=== PATIENT | male | born 1960 | race Caucasian/White ===

== ENCOUNTER 2017-12-26 21:11 | Inpatient (IN) | payer BC ==
[2017-12-26 22:16] LABS: ABS Basophils 0 10^3/ul (0-0.2); ABS Eosinophils 0 10^3/ul (0-0.6); ABS Monocytes 0.6 10^3/ul (0-0.8); ABS Neutrophils 7.8 10^3/ul (1.5-7.7); ABS Nucleated RBC 0 10^3/ul; Eosinophil % 0.3 % (0-6); Hematocrit 41 % (42-52); Hemoglobin 13.6 g/dl (14.0-18.0); Lymphocyte % 10.6 % (25-47); Mean Corpuscular HGB Conc 34 g/dl (31-36); Mean Corpuscular Hemoglobin 30 pg (27-31); Mean Corpuscular Volume 90 fL (80-94); Mean Platelet Volume 8.7 um3 (7.4-10.4); Nucleated Red Blood Cells % 0.1; Platelet Count 280 10^3/ul (150-450); Red Blood Count 4.49 10^6/ul (4.0-5.4); Red Cell Distribution Width 14 % (10.5-15); White Blood Count 9.5 10^3/ul (3.5-10.8)
[2017-12-26 22:31] LABS: EGFR Non-African American 83.5 (>60)
[2017-12-27 01:12] LABS: Urine Appearance Turbid; Urine Blood Negative (Negative); Urine Ketones Negative (Negative); Urine Protein Negative (Negative); Urine Specific Gravity 1.024 (1.010-1.030); Urine Urobilinogen Negative (Negative)
[2017-12-27 01:25] LABS: Urine Color Amber
--- NOTE | 2017-12-27 06:37 | ED ---
Sayra Banuelos Rebecca, scribed for Nusrat Christensen MD on 12/26/17 at 2133 . Psychiatric Complaint - HPI Summary HPI Summary: Pt is a 57 y/o M who presents to ED accompanied by his sister c/o worsening anxiety and depression. Notes intermittent SIs. Reports that upon waking up every day he is concerned about how he will get through the day with no specific concerns, just general worries. 10 years ago, which he believes were triggered by the winter season. States he typically improves over the summer. Prior similar episodes PMHx anxiety and depression. He was started on Lexapro BID yesterday morning after being on Pristiqu for many years, then Zoloft which he is still taking. - History Of Current Complaint Chief Complaint: EDMentalHealth Time Seen by Provider: 12/26/17 21:28 Hx Obtained From: Patient Onset/Duration: Still Present Character: Depressed, Anxious Aggravating Factor(s): Other - Winter Alleviating Factor(s): Other - Summer Related History: Positive For: Prior Psychiatric Issues - Anxiety, depression Has Suicidal: Reports: Thoughts - Allergies/Home Medications Allergies/Adverse Reactions: Allergies Allergy/AdvReac Type Severity Reaction Status Date / Time No Known Allergies Allergy Verified 12/26/17 21:47 Home Medications: Home Medications Escitalopram Oxalate [Lexapro 10 mg] 10 mg PO DAILY 12/26/17 [History Confirmed 12/26/17] Sertraline HCl [Zoloft] 50 mg PO DAILY 12/26/17 [History Confirmed 12/26/17] PMH/Surg Hx/FS Hx/Imm Hx Endocrine/Hematology History: Reports: Hx Anemia - Is taking iron supplements Psychiatric History: Reports: Hx Anxiety, Hx Depression Infectious Disease History: No Infectious Disease History: Denies: Traveled Outside the US in Last 30 Days - Family History Known Family History: Positive: Other - [place] - Social History Alcohol Use: Occasionally Substance Use Type: Reports: None Smoking Status (MU): Never Smoked Tobacco Review of Systems Negative: Fever Positive: Anxious, Depressed, Other - SIs All Other Systems Reviewed And Are Negative: Yes Physical Exam - Summary Physical Exam Summary: VITAL SIGNS: Reviewed. GENERAL: ~Patient is a well-developed and nourished male who is lying comfortable in the stretcher. Patient is not in any acute respiratory distress. Patient is cooperative, seems depressed and has concerns. HEAD AND FACE: No signs of trauma. No ecchymosis, hematomas or skull depressions. No sinus tenderness. EYES: PERRLA, EOMI x 2, No injected conjunctiva, no nystagmus. EARS: Hearing grossly intact. Ear canals and tympanic membranes are within normal limits. MOUTH: Oropharynx within normal limits. NECK: Supple, trachea is midline, no adenopathy, no JVD, no carotid bruit, no c- spine tenderness, neck with full ROM. CHEST: Symmetric, no tenderness at palpation LUNGS: Clear to auscultation bilaterally. No wheezing or crackles. CVS: Regular rate and rhythm, S1 and S2 present, no murmurs or gallops appreciated. EXTREMITIES: FROM in all major joints, no edema, no cyanosis or clubbing. NEURO: Alert and oriented x 3. No acute neurological deficits. Speech is normal and follows commands. SKIN: Dry and warm Triage Information Reviewed: Yes Vital Signs On Initial Exam: Initial Vitals Temp Pulse Resp BP Pulse Ox 98.8 F 83 16 133/72 100 12/26/17 21:15 12/26/17 21:15 12/26/17 21:15 12/26/17 21:15 12/26/17 21:15 Vital Signs Reviewed: Yes Diagnostics - Vital Signs Vital Signs Temp Pulse Resp BP Pulse Ox 12/26/17 21:15 98.8 F 83 16 133/72 100 - Laboratory Result Diagrams: 12/26/17 22:02 12/26/17 22:02 Lab Statement: Any lab studies that have been ordered have been reviewed, and results considered in the medical decision making process. Course/Dx - Course Assessment/Plan: Pt is a 57 y/o M who presents to ED accompanied by his sister c /o worsening anxiety and depression. Notes intermittent SIs. Reports that upon waking up every day he is concerned about how he will get through the day with no specific concerns, just general worries. 10 years ago, which he believes were triggered by the winter season. States he typically improves over the summer. Prior similar episodes PMHx anxiety and depression. He was started on Lexapro BID yesterday morning after being on Pristiqu for many years, then Zoloft which he is still taking. Medically cleared for MHE at 0004. Pt will be signed out to Dr. Schulz, pending disposition, awaiting MHE completion. - Differential Dx/Clinical Impression Provider Diagnosis: Depression Discharge - Sign-Out/Discharge Documenting (check all that apply): Sign-Out Patient Signing out patient TO: Justine Schulz - Pending MHE Completion - Discharge Plan Condition: Stable Referrals: No Primary Care Phys,NOPCP [Primary Care Provider] - The documentation as recorded by the Sayra topete Rebecca accurately reflects the service I personally performed and the decisions made by , Nusrat Christensen MD.
[2017-12-27] MEDS ORDERED: Escitalopram (NF) 10 MG TAB PO ONE ×2 (08:30→08:48)
[2017-12-27] MEDS ORDERED: Sertraline* 50 MG TAB PO ONE (08:47)
--- NOTE | 2017-12-27 13:54 | ED ---
Tequila Banuelos Julia, scribed for Justine Schulz MD on 12/27/17 at 0741 . Progress - Progress Note Progress Note: This pt is signed out from Dr. Christensen at shift change. At 08:25 Patient's disposition was discussed with staff in Flex Unit. Pt with depression, has come from [place] to be with his sister, has not been able to manage daily living. Flex staff informed me that patient will be admitted, but no inpatient beds are available at the moment. Flex staff are persuing possible transfer. Pt will be an involuntary admit. Staff informed me of patient's regular medications to be ordered including Zoloft and Lexapro both last taken 12/26/17. PE: Pt alert, calm, cooperative, poor eye contact. HEENT: PERRL EOMI, atraumatic Neck: supple, nontender, no JVD Cor S1 S2 Lungs Clear Abd soft, nontender, no masses Extrem: no edema, no calf tenderness, pulses intact. Neuro: A O x 3, Motor 5/5 Sensation intact, reflexes intact, no focal deficit. Skin: warm, dry, well perfused. - Consult/PCP Time Called: 00:10 Course/Dx - Course Course Of Treatment: Pt was medically cleared by Dr. Christensen. Per Dr. Herring admit . 13:43 9. papers completed. Condition stable. Dx: depression - Diagnoses Provider Diagnoses: Depression Discharge - Sign-Out/Discharge Documenting (check all that apply): Discharge - admit U - Discharge Plan Condition: Stable Disposition: [facility]YCHIATRIC FACILITY-[facility] Discharge Disposition Comment: Pt admitted to [facility] involuntary status - Billing Disposition and Condition Condition: STABLE Disposition: PS-[facility] The documentation as recorded by the Tequila topete Julia accurately reflects the service I personally performed and the decisions made by , Justine Schulz MD.
[2017-12-28] MEDS: Sertraline* 100 MG TAB PO SCH (16:07)
--- NOTE | 2017-12-28 19:25 | HP ---
PSYCHIATRIC HISTORY AND PHYSICAL: DATE OF ADMISSION: 12/27/17 JUSTIFICATION FOR ADMISSION: The patient is in need of 24-hour supervision and care secondary to sol cidal ideations without plan. CHIEF COMPLAINT: "Just depressed I guess." HISTORY OF PRESENT ILLNESS: The patient is a 57-year-old, single, never white male with a hi story of major depressive disorder, who was brought in by his sister on a 9.39 legal status due to in creasing symptoms of depression as well as inability to care for himself. My understanding is that kaylen ramirez came to the [facility] to stay with his sister because he has been too depressed to get out of bed or go to work. He made passive suicidal statements to the effect that he wanted to go to sleep and not wake up, which prompted her to call an ambulance to have him brought to the hospital for evaluati on. His sister is not available at this time for further collateral information. 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 Apparently, he started getting depressed this wi nter and was actually hospitalized in early September of this year at [facility] in [place], [place]. Thereafter, he took medical leave from work and for about 1-1/2 months he traveled [facility] his older sister in [place]. During that time, his mother in [place], [place], sometime in 2017 and he has been experiencing significant grief from that. He used to get much of his socia lization from visiting his mother and is still grieving her loss. More recently, he visited here to where his younger sister lives and stayed with her for 1 night. He has been experiencing anxiety, pa martina attacks, no confidence, depressed mood. He feels lonely and feels that he has lacked companionsh ip throughout his life and he has been isolating at home with poor motivation and had been missing wo rk. Currently, he states that the winter has been particularly dreary even prior to the of his mother. He does acknowledge passive suicidal ideations with the thought that it would be okay if he did not wake up in the morning. He steadfastly denies any plan to harm himself. The patient has be en hypersomnolent with anhedonia, increased guilt, poor energy, poor concentration, lack of appetite, psychomotor retardation, and passive suicidal thoughts of . PSYCHIATRIC HISTORY: He has been hospitalized at [facility] in [place] twice; the first time 10 yea rs ago and the second time in September 2017. He had been on an antidepressant called Pristiq for appr oximately 10 years. Two months ago, he saw a psychiatrist in [place] who switched him for Pristiq t o Zoloft. Then, approximately 1 week ago because the patient was experiencing sexual side effects fr om Zoloft, this was decreased from 100 mg to 50 and the patient was started on 10 mg of Lexapro. The patient denies any previous history of suicidality including attempts or plans. He denies any histo ry of violence. He has never received electroconvulsive therapy. He denies any past history of abus e or neglect and denies traumatic brain injury. SUBSTANCE ABUSE HISTORY: Negative for alcohol, tobacco, or illicit drug abuse. PAST MEDICAL HISTORY: Significant for spinal stenosis with spinal surgery occurring 5 years ago. CURRENT MEDICATIONS: Include: 1. Lexapro 10 mg p.o. daily. 2. Zoloft 50 mg p.o. daily. ALLERGIES: He denies having any known drug allergies. FAMILY HISTORY: Significant for both of his sisters with depression and his fraternal brother with d epression. All three of them take some form of antidepressant medication. SOCIAL HISTORY: The patient was born and raised in [place], [place]. His parents in 1985 aft er 32 years of marriage, whereas his father remarried, his mother stayed single until her . The patient does have 1 fraternal brother, he has a younger sister and then an older sister, all from [facility] same mother and father. The patient never , never had children. He was able to finish high school and then went into the [employer]. 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 He is currently on medical leave. He owns his own house in [place], [place], since approximately 1997 where he lives alone. He has no prior history. No leg al history. He is not currently sexually active and has no sexually transmitted disease history. [facility] patient is anabaptist and [facility] [employer]. REVIEW OF SYSTEMS: The patient denies headache or double vision. He denies sore throat, cough, ches t pain, difficulty breathing. He denies abdominal pain, nausea, vomiting, diarrhea, or constipation. He denies difficulty ambulating, enlarged lymph nodes, fevers, or rashes. PHYSICAL EXAMINATION VITAL SIGNS: Blood pressure 114/82, heart rate 72, temperature 98.3 degrees Fahrenheit, oxygen satur ations are 100% on room air, respiratory rate is 18. HEENT: Head is normocephalic, atraumatic. NECK: Supple. CHEST: Clear to auscultation bilaterally. CARDIAC: Exam reveals normal heart sounds. ABDOMEN: Soft and nontender. MUSCULOSKELETAL: Exam reveals no sign of edema. NEUROLOGIC: He is grossly intact with no focal deficits. SKIN: Warm and dry. MENTAL STATUS EXAM: The patient is small, slight of stature, aging white male, who is calm, coopera tive. He is dressed in a long-sleeved T-shirt and jeans. He speaks with a raspy voice. Mood appear s to be depressed with constricted affect. Thought process is somewhat slowed. Thought content is si gnificant for his desire to get into a residential or to live in a more social setting. He is current ly denying suicidal or homicidal ideations. He denies auditory or visual hallucinations. Insight an d judgment appear to be fair given his willingness to seek treatment. Cognitively, he is awake and a lert with what would appear to be an average intellect. LABORATORY DATA: Revealed slight anemia with hemoglobin of 13.6 and hematocrit of 41. Complete meta bolic panel will be of slightly elevated glucose of 106. TSH is normal at 0.82. Urinalysis within n ormal limits. Urine drug screen is negative for all substances tested. DIAGNOSES: As follows: [place] I: Major depressive disorder, recurrent, severe without psychotic features. [place] II: Deferre d. [place] III: History of spinal stenosis, history of spinal surgery, normocytic anemia. [place] IV: Mod erate primary support stressors. [place] V: At this time is 40. IMPRESSION: The patient is a 57-year-old, single, never white male with a history of recurre nt major depressive illness, who was brought in on a 9.39 status when his sister whom he is visiting here in [place] called the ambulance because he was lethargic, amotivated, and could not seem to get o ut of bed. He also made passive suicidal statements, which he repeated in our emergency room. PLAN: The patient is admitted to the adult behavioral health unit where he was placed on q.15-minute checks for his own safety. We will resume treatment with sertraline and bump it back up to 100 mg. We will also start an adjunctive trial of Wellbutrin XL 150 mg p.o. daily. I will discontinue Lexap ro as there is no rationale for him to be on 2 serotonin reuptake inhibitors. The patient is strongl y encouraged to avail himself of all group and milieu activities. He will have a chance to meet with a social science teacher about his housing situation on Saturday. We will be involving his sister in his treatm ent. Once dischargeable, we will have to find psychiatric followup in whichever community he desires to reside in. [id number]/CPS #: [id number]
[2017-12-29] MEDS: BuPROPion XL* 150 MG TAB.XL PO SCH (10:09)
[2017-12-29] MEDS: Sertraline* 100 MG TAB PO SCH (10:09)
[2017-12-29] MEDS: CMC:Lactase Enzyme (NF) 3,000 UNIT TAB PO SCH (17:13)
[2017-12-30] MEDS: CMC:Lactase Enzyme (NF) 3,000 UNIT TAB PO SCH ×3 (08:03→17:03)
[2017-12-30] MEDS: BuPROPion XL* 150 MG TAB.XL PO SCH (09:35)
[2017-12-30] MEDS: Sertraline* 100 MG TAB PO SCH (09:36)
--- NOTE | 2017-12-30 10:08 | PN ---
Subjective - Subjective Subjective: Psychiatric ATtending Progress NOte: chart reveiwed including Dr. Javed's history and physical patient history gathered in full and patient interviewed X 45 min In summary patient is 57 yo male with history of mild intellectual disorder and recurrent major depression admitted 5 days ago with symptoms of depression ongoing since September 2017. patient hospitalized 10 years ago and placed on pristiq 50 mg with good response and remission of symptoms until late 2016. rehospitalized in september 2017 with recurrent depression and passive SI. Pristiq was increased to 100 mg with poor response. Patient unable to get of bed or make his meals. He took leave from work and went to visit sister in [place]. He saw new psychiatrist who discontinued pristiq and started him on Zoloft up to 100 mg which caused decrease libido. lowered to 50 mg and lexapro added. poor response. remained depressed. returned to [place], returned to work for 3 weeks but had to take off again as he was not able to get himself to work. Patient lives alone, is single, no children. 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 Patient was close with and devoted to mother who shortly before he returned from [place]. Patient continues to think of mother daily and is mouring her . Medical History : none NKDA psych history as above MSE: 57 yo male with short stature. patient is oddly related and has poor eye contact. patient is moderately restless. He walked away from me initially telling me that he was feeling very anxious. He appeared moderately agitated and I ordered him klonopin 0.5 mg stat. mood depressed affect anxious and labile. thought process: mildly disorganized and at times irrelevant. patient has poor attention span and concentration which is causing him to be unable to process language accurately ie. receptive language diminished. Thought content: appears somewhat internally preoccupied. at first answered yes when asked if he was hearing voices and then answered no. patient is preoccupied with thoughts of mother. also has passive thoughts of suicide, feels hopeless, and worthless. also reports anhedonia, diminished interest, low energy, decreased appetite, difficulty falling and staying asleep. insight fair Judgment intact. cognitively: alert and oriented in all spheres. patient has impaired attention span, concentration. concrete, and appears to have limited intellectual capacity. Labs reviewed and are all within normal limits. Impression: MDD severe ? psychotic features Bereavement Intellectual Disorder mild Plan: d/c zoloft as patient is against it due to sexual side effects start Remeron 15 mg qhs continue wellbutrin XL 150 mg x 1 more day then increase to 300 mg qam start klonopin 0.5 mg BID for anxiety/agitation give trazodone 50 mg qhs prn insomnia increase database by talking with sisters attends therapy program. would like to speak with his providers there as well Plan - Plan Treatment Plan: Name: TAISHA BENITEZ Birthdate: 1960 [id number] Medications: Current Medications Bupropion HCl (Wellbutrin Xl *) 150 mg PO DAILY JYOTHI PRN Reason: Protocol Last Admin: 12/30/17 09:35 Dose: 150 mg Clonazepam (Klonopin Tab(*)) 0.5 mg PO BID@09,16 JYOTHI Lactase (Lactaid Fast Act (Nf)) 3,000 unit PO AC JYOTHI Last Admin: 12/30/17 17:03 Dose: 3,000 unit Mirtazapine (Remeron Tab*) 15 mg PO BEDTIME JYOTHI Trazodone HCl (Desyrel Tab*) 50 mg PO BEDTIME PRN PRN Reason: INSOMNIA
--- NOTE | 2017-12-30 11:31 | PN ---
MHU: Group Therapy Note - Service Type Service Type: 27679 Group Psychotherapy - Cognitive Behavioral Group Therapy ( CBT):Patient attended CBT programming this morning and presented with flat affect that did not vary with discussion. Although responsive to direct prompts to respond to questions, patient did not engage in spontaneous conversation
[2017-12-30] MEDS ORDERED: clonazePAM TAB(*) 0.5 MG ONE (17:01)
[2017-12-30] MEDS ORDERED: clonazePAM TAB(*) 0.5 MG PO ONE (17:03)
[2017-12-30] MEDS ORDERED: traZODone TAB* 50 MG TAB PO PRN (18:38)
[2017-12-30] MEDS: Mirtazapine TAB* 15 MG PO SCH (21:29)
[2017-12-31] MEDS: CMC:Lactase Enzyme (NF) 3,000 UNIT TAB PO SCH ×3 (08:49→16:49)
[2017-12-31] MEDS: BuPROPion XL* 150 MG TAB.XL PO SCH (08:49)
[2017-12-31] MEDS: clonazePAM TAB(*) 0.5 MG PO SCH ×2 (08:50→16:49)
--- NOTE | 2017-12-31 12:54 | PN ---
Subjective - Subjective Date of Service: 12/31/17 Service Type: 13040 Hosp care 25 min moderate complexity Subjective: Taisha is seen today in coverage for attending psychiatrist, Dr. Walton. I meet with the patient during visiting hours in the day area, where he is accompanied by his sister, Josie. She immediately comments that he looks better to her than he had been prior to admission. Taisha concurs, stating "I 've got more energy. Now that the weather's better I'd really like to think about getting out there and doing stuff." His sister confirms that he has a "green thumb" and typically does a great deal of gardening this time of year. Taisha is tolerating his medication changes well and has no complaints of untoward effects. Staff notes indicate that he is somewhat overinvested in the idea of getting more exercise and tends to perseverate on this. An additional concern is his admission of hearing voices on the unit. "Only once in a blue martinez. It's nothing really" he states when asked about this problem. Josie requests a more formal family meeting prior to discharge and is referred to Dr. Walton and KEO Chang for this question. Taisha denies SI. Objective - Appearance Appearance: Well Developed/Nourished Dysmorphic Features: No Hygiene: Normal Grooming: Well Kept - Behavior Psychomotor Activities: Normal Exhibits Abnormal Movement: No - Attitude and Relatedness Attitude and Relatedness: Cooperative Eye Contact: Good - Speech Quality: Unpressured Latencies: Normal Quantity: Appropriate - Mood Patient's Decription of Mood: "Good" - Affect Observed Affect: Good Affect Consistent with: Euthymia - Thought Process Patient's Thought Process: Coherent Thought Content: No Passive Wish, No Suicidal Planning, No Homicidal Ideation, No Paranoid Ideation - Sensorium Experiencing Hallucinations: No, Sensorium is Clear Type of Hallucinations: Visual: No, Auditory: No, Command: No - Level of Consciousness Level of Consciousness: Alert Orientation: Yes Intact, Yes Orientated to Time, Yes Orientated to Place, Yes Orientated to Person - Impulse Control Impulse Control: Intact - Insight and Judgement Insight and Judgement: Good - Group Participation Particating in Group Activities: Yes - Medication Management Medication Management Adherence: Yes Assessment - Assessment Merits Inpatient Hospitalization: Consolidate Improvements, Pending Safe DC Plan Inpatient DSM-V Dx: F33.2 Clinical Impression: 57 y.o. single, never , white male with a history of recurrent unipolar depression, questionable intellectual delay and recent psychiatric hospitalization in [place], [place] who arrives on 9.41 status via an ambulance after divulging passive SI to his sister here in [place], whom he is temporarily visiting here in [place]. Plan - Plan Treatment Plan: Name: TAISHA BENITEZ Birthdate: 1960 [id number] The patient's sertraline is discontinued due to sexual side effects. We have similarly discontinued escitalopram. He is currently on a regimen of mirtazapine 15mg PO qhs, bupropion XL 150mg PO qam and clonazepam 0.5mg PO BID. The patient is improving but needs further inpatient-level stabilization for safety. Family is requesting a meeting with the team. Continued Medication Management: Different Medication Medications: Current Medications Bupropion HCl (Wellbutrin Xl *) 150 mg PO DAILY JYOTHI PRN Reason: Protocol Last Admin: 12/31/17 08:49 Dose: 150 mg Clonazepam (Klonopin Tab(*)) 0.5 mg PO BID@,16 [facility] Last Admin: 12/31/17 08:50 Dose: 0.5 mg Lactase (Lactaid Fast Act (Nf)) 3,000 unit PO AC [facility] Last Admin: 12/31/17 12:03 Dose: 3,000 unit Mirtazapine (Remeron Tab*) 15 mg PO BEDTIME [facility] Last Admin: 12/30/17 21:29 Dose: 15 mg Trazodone HCl (Desyrel Tab*) 50 mg PO BEDTIME PRN PRN Reason: INSOMNIA - Discharge Plan Discharge Plan: Inpatient Hospitalization
[2017-12-31] MEDS: Mirtazapine TAB* 15 MG PO SCH (21:21)
[2018-01-01] MEDS: CMC:Lactase Enzyme (NF) 3,000 UNIT TAB PO SCH ×4 (08:13→16:46)
[2018-01-01] MEDS: BuPROPion XL* 150 MG TAB.XL PO SCH (08:13)
[2018-01-01] MEDS: clonazePAM TAB(*) 0.5 MG PO SCH ×2 (08:14→16:46)
--- NOTE | 2018-01-01 10:07 | PN ---
Subjective - Subjective Subjective: Psychiatric Attending Progress Note: Met with patient X 25 minutes this afternoon. He reports that he has been feeling better when compared to how he felt upon admission 6 days ago. Patient endorses feeling considerable less anxiety, less restlessness and also feels mood is brighter. He has been sleeping 8 hours per night over past 3 to 4 days. Patient's sister came to visit him yesterday and the visit went well. Review of nursing and oral surgery technician's notes reveal patient has been attending groups and has been increasingly less seclusive since admission. he has a good appetite and has been eating majority if not all of his meal (which was not true prior to admission) Vitals remain stable Objective - Appearance Appearance: Healthy Appearing Dysmorphic Features: No Hygiene: Normal Grooming: Well Kept - Behavior Psychomotor Activities: Normal Exhibits Abnormal Movement: No - Attitude and Relatedness Attitude and Relatedness: Cooperative Eye Contact: Good - Speech Quality: Unpressured Latencies: Normal Quantity: Terse - Mood Patient's Decription of Mood: "Okay" - Affect Observed Affect: Constricted Affect Consistent with: Dysphoria - Thought Process Patient's Thought Process: Coherent, Impoverished Thought Content: No Passive Wish, No Suicidal Planning, No Homicidal Ideation, No Paranoid Ideation - Sensorium Experiencing Hallucinations: No, Sensorium is Clear Type of Hallucinations: Visual: No, Auditory: No, Command: No - Level of Consciousness Level of Consciousness: Alert Orientation: Yes Intact, Yes Orientated to Time, Yes Orientated to Place, Yes Orientated to Person - Impulse Control Impulse Control: Intact - Insight and Judgement Insight and Judgement: Fair - Group Participation Particating in Group Activities: Yes - Medication Management Medication Management Adherence: Yes Assessment - Assessment Inpatient DSM-V Dx: F33.2 Clinical Impression: patient is showing gains in his mental status with decreased agitation, brighter mood,improved quality and duration of sleep. He continues to be oddly related and have impoverished content of thought which are likely related to intellectual disorder. Plan - Plan Medications: Increase Remeron to 30 mg po QHS continue Wellbutrin XL 150 mg QAM continue Trazodone 50 mg gqhs Continue Klonopin 0.5 mg BID will call sister to arrange for family meeting for tomorrow potential discharge for saturday assuming patient maintains current gains.
[2018-01-01] MEDS: Mirtazapine TAB* 15 MG PO SCH (21:17)
[2018-01-02] MEDS: CMC:Lactase Enzyme (NF) 3,000 UNIT TAB PO SCH ×3 (08:50→16:41)
[2018-01-02] MEDS: clonazePAM TAB(*) 0.5 MG PO SCH ×2 (08:50→16:41)
[2018-01-02] MEDS: BuPROPion XL* 150 MG TAB.XL PO SCH (08:50)
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
[2018-01-02] MEDS: Mirtazapine TAB* 15 MG PO SCH (20:47)
[2018-01-03] MEDS: CMC:Lactase Enzyme (NF) 3,000 UNIT TAB PO SCH ×3 (09:49→16:59)
[2018-01-03] MEDS: BuPROPion XL* 150 MG TAB.XL PO SCH (09:49)
[2018-01-03] MEDS: clonazePAM TAB(*) 0.5 MG PO SCH ×2 (09:50→16:59)
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
[2018-01-03] MEDS: Mirtazapine TAB* 15 MG PO SCH (21:48)
[2018-01-04] MEDS: CMC:Lactase Enzyme (NF) 3,000 UNIT TAB PO SCH ×3 (07:49→17:03)
[2018-01-04] MEDS: clonazePAM TAB(*) 0.5 MG PO SCH ×2 (09:00→17:03)
[2018-01-04] MEDS: BuPROPion XL* 150 MG TAB.XL PO SCH (09:00)
[2018-01-04] MEDS: Mirtazapine TAB* 15 MG PO SCH (20:36)
[2018-01-05] MEDS: BuPROPion XL* 150 MG TAB.XL PO SCH (09:16)
[2018-01-05] MEDS: clonazePAM TAB(*) 0.5 MG PO SCH ×2 (09:16→16:59)
[2018-01-05] MEDS: CMC:Lactase Enzyme (NF) 3,000 UNIT TAB PO SCH ×3 (09:16→16:59)
[2018-01-05] MEDS: Mirtazapine TAB* 15 MG PO SCH (22:00)
[2018-01-06] MEDS: CMC:Lactase Enzyme (NF) 3,000 UNIT TAB PO SCH ×4 (08:02→19:59)
[2018-01-06] MEDS: BuPROPion XL* 150 MG TAB.XL PO SCH (08:02)
[2018-01-06] MEDS: clonazePAM TAB(*) 0.5 MG PO SCH ×2 (08:52→16:38)
--- NOTE | 2018-01-06 10:15 | PN ---
Subjective - Subjective Subjective: Psychiatric Attending Progress Note: Patient did well over weekend but did appear to be sleeping more than usual during the day. somwhat oversedated per patient. denied any other side effects. I spoke with Patient's brother Abhishek again today. Abhishek spoke with Chilango both Saturday and Saturday and reported to me that he seemed much more alert and much closer to his baseline. we discussed chilango attending group therapy 2 to 3 times a week at [facility], and also him seeing therapist and psychiatrist Melvina Chang will be setting up the above appointments. I met with Chilango and other than being a tad sleepy likely from the klonopin Objective - Appearance Appearance: Well Developed/Nourished Dysmorphic Features: No Hygiene: Normal Grooming: Fairly Well Kept - Behavior Psychomotor Activities: Normal Exhibits Abnormal Movement: No - Attitude and Relatedness Attitude and Relatedness: Cooperative Eye Contact: Fair - Speech Quality: Unpressured Latencies: Normal Quantity: Appropriate - Mood Patient's Decription of Mood: "Anxious" - Affect Observed Affect: Unvariable Affect Consistent with: Euthymia - Thought Process Patient's Thought Process: Coherent Thought Content: No Passive Wish, No Suicidal Planning, No Homicidal Ideation, No Paranoid Ideation - Sensorium Type of Hallucinations: Visual: No, Auditory: No, Command: No - Level of Consciousness Level of Consciousness: Alert Orientation: Yes Intact, Yes Orientated to Time, Yes Orientated to Place, Yes Orientated to Person - Impulse Control Impulse Control: Intact - Insight and Judgement Insight and Judgement: Fair - Group Participation Particating in Group Activities: Yes - Medication Management Medication Management Adherence: Yes Assessment - Assessment Inpatient DSM-V Dx: F33.2 Clinical Impression: recurrent major depression in partial remission patient no longer suicidal. His mental status has improved sufficiently. He is stable and ready for discharge. Plan - Plan Treatment Plan: Plan: d/c scheduled klonopin as it is causing oversedation change to 0.25 mg BID prn anxiety or agitation discharge 4 pm tomorrow with follow up psychiatric apppointment, [facility] groups and individual therapy return to work in one week
[2018-01-06] MEDS ORDERED: clonazePAM TAB(*) 0.5 MG PO PRN (16:03)
[2018-01-06] MEDS: Mirtazapine TAB* 15 MG PO SCH (23:05)
[2018-01-07] MEDS: BuPROPion XL* 150 MG TAB.XL PO SCH (10:07)
[2018-01-07] MEDS: CMC:Lactase Enzyme (NF) 3,000 UNIT TAB PO SCH ×3 (10:07→16:55)
[2018-01-07 10:11] VITALS: BP 95/69
--- NOTE | 2018-01-07 12:49 | DS ---
Treatment Course & Assessment Clinical Course & Impression: recurrent major depression in partial remission patient no longer suicidal. His mental status has improved sufficiently. He is stable and ready for discharge. Inpatient DSM-V Dx: F33.2 Discharge Planning - Discharge Planning Medications: Current Medications Bupropion HCl (Wellbutrin Xl *) 150 mg PO DAILY [facility] PRN Reason: Protocol Last Admin: 01/07/18 10:07 Dose: 150 mg Clonazepam (Klonopin Tab(*)) 0.25 mg PO BID PRN PRN Reason: anxiety/agitation Last Admin: 01/06/18 19:59 Dose: 0.25 mg Lactase (Lactaid Fast Act (Nf)) 3,000 unit PO AC [facility] Last Admin: 01/07/18 12:05 Dose: 3,000 unit Mirtazapine (Remeron Tab*) 30 mg PO BEDTIME [facility] Last Admin: 01/06/18 23:05 Dose: 30 mg Trazodone HCl (Desyrel Tab*) 50 mg PO BEDTIME PRN PRN Reason: INSOMNIA Discharge Planning: Prescriptions provided for discharge [] Yes [] No Follow up care details as per social work arrangements. Patient response to discharge plan: [] eager for discharge [] agreeable with discharge plan [] ambivalent about discharge [] disagrees with discharge today
[2018-01-07] MEDS ORDERED: clonazePAM TAB(*) 0.5 MG PO ONE (16:40)
== END 2018-01-07 17:35 | disposition home or self-care (01) | DRG 751 ==
LOC: ED 21:11 → BSU 12-27 14:37
PROVIDERS: ADMIT Psychiatry & Neurology Psychiatry; ATTEND Psychiatry & Neurology Psychiatry
DX: F33.2 Major depressive disorder, recurrent severe without psychotic features (principal); R45.851 Suicidal ideations; F70 Mild intellectual disabilities; Z79.899 Other long term (current) drug therapy; Z81.8 Family history of other mental and behavioral disorders
CPT/HCPCS: 36415; 80053; 80307; 80320; 80329; 81003; 82607; 82746; 84436; 84439; 84443; 85025; 90853; 99222; 99231; 99232; 99238; 99282; A9270-GY; G0480

== ENCOUNTER 2021-08-17 12:27 | Inpatient (IN) ==
[2021-08-17 14:01] LABS: Urine Appearance Clear; Urine Bilirubin Negative (Negative); Urine Blood Negative (Negative); Urine Color Yellow; Urine Glucose Negative (Negative); Urine Ketones Negative (Negative); Urine Nitrite Negative (Negative); Urine Protein Negative (Negative); Urine Specific Gravity 1.026 (1.002-1.030); Urine Urobilinogen Negative (Negative)
[2021-08-17 14:17] LABS: Urine Benzodiazepine Screen None Detected (None Detect); Urine Cannabinoids Screen None Detected (None Detect); Urine Opiates Screen None Detected (None Detect)
[2021-08-17 15:58] LABS: ABS Lymphocytes 0.7 10^3/ul (1.0-4.8); ABS Monocytes 0.5 10^3/ul (0-0.8); ABS Neutrophils 6.5 10^3/ul (1.5-7.7); Eosinophil % 0.2 %; Hematocrit 39 % (42-52); Mean Corpuscular HGB Conc 33 g/dL (31-36); Mean Corpuscular Hemoglobin 30 pg (27-31); Mean Corpuscular Volume 90 fL (80-94); Mean Platelet Volume 9.6 fL (7.4-10.4); Platelet Count 230 10^3/uL (150-450); Red Blood Count 4.35 10^6 /uL (4.18-5.48); Red Cell Distribution Width 14 % (10-15); White Blood Count 7.7 10^3/uL (3.5-10.8)
[2021-08-17 16:17] LABS: ALT 16 U/L (7-52); AST 15 U/L (13-39); Albumin 4.6 g/dL (3.2-5.2); Albumin/Globulin Ratio 1.9 (1-3); Alkaline Phosphatase 74 U/L (35-149); Anion Gap 4 mmol/L (2-11); Blood Urea Nitrogen 32 mg/dL (6-24); CO2 Carbon Dioxide 31 mmol/L (22-32); Calcium 9.8 mg/dL (8.6-10.3); Chloride 104 mmol/L (101-111); Globulin 2.4 g/dL (2-4); Glucose 120 mg/dL (70-100); Potassium 4.7 mmol/L (3.5-5.0); Sodium 139 mmol/L (135-145); eGFR CKD-EPI 97.9 (>60)
[2021-08-17 17:02] LABS: Acetaminophen < 15 mcg/mL; Alcohol, S < 13 mg/dL (<13); Salicylate < 2.50 mg/dL (<30)
[2021-08-17 17:14] LABS: TSH Ultra Thyroid Stim Horm 0.41 mcIU/mL (0.34-5.60)
[2021-08-17 18:36] LABS: Rapid COVID-19 Molecular Undetected (Undetected)
[2021-08-17] MEDS ORDERED: Al Hydrox/Mg Hydrox/Simet LIQ 30 ML UDC PO PRN (20:27)
[2021-08-18 07:35] LABS: HDL Cholesterol 67.6 mg/dL
[2021-08-18] MEDS: Vitamin THERAPEUTIC TAB PO SCH (10:38)
[2021-08-19] MEDS: Vitamin THERAPEUTIC TAB PO SCH (08:18)
[2021-08-20] MEDS: Vitamin THERAPEUTIC TAB PO SCH (09:22)
[2021-08-21] MEDS: Vitamin THERAPEUTIC TAB PO SCH (08:40)
[2021-08-22] MEDS: Vitamin THERAPEUTIC TAB PO SCH (08:48)
[2021-08-23] MEDS: Vitamin THERAPEUTIC TAB PO SCH (08:36)
[2021-08-24] MEDS: Vitamin THERAPEUTIC TAB PO SCH (08:49)
[2021-08-25] MEDS: Vitamin THERAPEUTIC TAB PO SCH (08:32)
[2021-08-25 15:44] VITALS: BP 98/62
== END 2021-08-25 18:50 | DRG 751 ==
LOC: ED 12:27 → BSU 17:51
PROVIDERS: ADMIT Psychiatry & Neurology Psychiatry; ATTEND Psychiatry & Neurology Psychiatry